=== PATIENT | female | born 1960 | race Caucasian/White ===

== ENCOUNTER 2016-12-14 06:22 | Emergency (ER) | payer OTHER ==
[~2016-12-14] VITALS: Ht 165.1 cm; Wt 112.2 kg
[~2016-12-14 06:22] MED LIST: ADVAIR 250/501 DISK IH; ADVIL200 MG PO; ALBUTEROL17 GM IH; ATIVAN0.5 MG PO; ATROVENT 00.5 MG/2.5 IH; BACTRIM,SEPT1 TABLET PO; CARAFATE1 GM PO; CEFTIN500 MG PO; CIPRO250 MG PO; CLINDAMYCIN HC300 MG PO; COLACE100 MG PO; COMPAZINE10 MG PO; CYMBALTA60 MG PO; DEPRESSION MED; DUONEB 2.5-0.5 M3 ML AEROSOL; FEXOFENADINE H180 MG PO; FLONASE16 G1 BOTH NARES; GABAPENTIN100 MG PO; HYCODAN SYRUP480 ML PO; HYDROCODONE CO120 ML PO; IMITREX100 MG PO; LACTULOSE10 GM/151 PO; LEVAQUIN750 MG PO; LOMOTIL TABLET1 EACH PO; LOPERAMIDE2 M1 PO; MELATONIN10 M1 PO; MIRALAX17 GM PO; MOTRIN800 MG PO; NEURONTIN300 MG PO; OXAYDO5 MG PO; OXYCODONE HCL5 MG PO; PANTOPRAZOLE SO40 MG PO; PERCOCET 5/31 TABLET PO; PREDNISONE1 MG PO; PREDNISONE10 MG PO; PREVACID30 MG PO; PROBIOTIC & AC1 EACH PO; PROVENTIL HFA6.7 GM IH; PROVENTIL,2.5 MG/3 M IH; PROZAC20 MG PO; PYRIDIUM100 MG PO; ROPINIROLE HC0.25 MG PO; ROXICODONE5 MG PO; SENNA8.6 MG PO; SINGULAIR10 MG PO; TRANSDERM-SCO1 PATCH TD; ULTRAM ER100 MG PO; ZOFRAN8 MG PO
[2016-12-14 08:09] LABS: BASOPHIL COUNT 0.1 K/uL (0-0.1); EOSINOPHIL (%) 3.9 % (0-5); EOSINOPHIL COUNT 0.2 K/uL (0-0.3); HEMATOCRIT 40.7 % (36.0-46.0); IMMATURE GRANULOCYTE (%) 0.3 % (0.0-0.7); INSTRUMENT ABS NEUTROPHIL CT 4.3 K/uL; LYMPHOCYTE COUNT 1.1 K/uL (1.0-2.8); MCH 28.6 PG (29.0-34.0); MCHC 31.9 G/DL (30.0-36.0); MCV 89.6 FL (83-99); MONOCYTE (%) 8.9 % (3-12); MONOCYTE COUNT 0.6 K/uL (0-0.8); NEUTROPHIL (%) 68.9 % (45-76); NEUTROPHIL COUNT 4.3 K/uL (1.8-6.4); PLATELET COUNT 226 K/uL (156-360); RBC DIS.WIDTH-CV 12.8 % (11.8-14.6); RBC DIS.WIDTH-SD 42.3 % (39-53); RED BLOOD COUNT 4.54 M/uL (3.80-5.20); WHITE BLOOD COUNT 6.2 K/uL (4.1-10.2)
[2016-12-14 08:38] LABS: ALKALINE PHOSPHATASE 96 IU/L (3-129); ANION GAP 11 MEQ/L (2-14); CHLORIDE 103 MEQ/L (99-109); GFR ESTIMATE (CALCULATED) > 59 mL/min/; GLUCOSE 96 mg/dL (70-99); LIPASE 21 U/L (1.0-51.0); SAMPLE HEMOLYSIS CHECK 0; SAMPLE ICTERIC CHECK 0; SAMPLE LIPEMIA CHECK 0; SODIUM 143 MEQ/L (136-147); TOTAL BILIRUBIN 0.4 MG/DL (0.0-1.0); UREA NITROGEN (BUN) 21 mg/dL (9-23)
[2016-12-14 09:34] LABS: ADD MIUA? NO; BILIRUBIN NEGATIVE; BLOOD NEGATIVE; COLOR YELLOW ((YELLOW)); GLUCOSE (STRIP) NEGATIVE; KETONES NEGATIVE; LEUKOCYTES NEGATIVE; NITRITE NEGATIVE; PROTEIN (STRIP) NEGATIVE; SPECIFIC GRAVITY 1.021 (1.000-1.030); UROBILINOGEN 0.2 MG/DL (0.2-1.0)
[2016-12-14 10:45] LABS: UCUL ADDED? NO
[2016-12-14] MEDS ORDERED: ZOFRAN4 MG PO (11:19)
[2016-12-14] MEDS ORDERED: PERCOCET 5/31 TABLET PO (11:19)
[2016-12-14 11:40] VITALS: BP 119/75
== END 2016-12-14 11:49 | disposition home or self-care (01) ==
LOC: EME 06:22
PROVIDERS: Emergency Medicine
DX: R10.11 Right upper quadrant pain (principal); R11.2 Nausea with vomiting, unspecified; R19.7 Diarrhea, unspecified; R30.0 Dysuria; K76.0 Fatty (change of) liver, not elsewhere classified; I70.0 Atherosclerosis of aorta; J45.909 Unspecified asthma, uncomplicated; Z87.440 Personal history of urinary (tract) infections; Z85.3 Personal history of malignant neoplasm of breast; Z87.891 Personal history of nicotine dependence
CPT/HCPCS: 74176; 76705; 80053; 81003; 83690; 85025; 93005; 99281; 99285; J2270; J2405; J7030